=== PATIENT | female | born 1975 | race Caucasian/White ===

== ENCOUNTER 2024-03-18 07:32 | Outpatient (OUT) | payer OTHER, SELFPAY ==
--- NOTE | 2024-03-18 | XR_ITS ---
The [address] [address] Patient Name: ELEN LLANES MRN: [id number] date: 1975 Sex: F Assigned Patient Location: [facility] Current Patient Location: Accession/Order Number: [id number] Exam Date: 03/18/2024 07:51 Report Date: 03/19/2024 07:52 At the request of: DARRYL SIFUENTES Procedure: XR foot RT min 3V PROCEDURE: XR foot RT min 3V, XR ankle RT min 3V HISTORY: RIGHT FOOT PAIN ; right ankle pain; no known injury COMPARISON: None. FINDINGS: BONES:Cortical irregularity and small subchondral lucencies adjacent the superior medial articular surface of the talus. Degenerative enthesophytes at the medial tibiotalar ligament which appear to have nearly contacting surfaces. SOFT TISSUES:Soft tissue swelling surrounding the ankle. EFFUSION:None visible. OTHER: Negative. XR/XR foot RT min 3V IMPRESSION: 1. Suspect osteochondral defect involving the medial articular surface of the talar dome. MRI recommended for further evaluation. 2. Bone contact versus near bone contact between the tip of the medial malleolus and the medial margin of the talus. Electronically authenticated by: JOSE EDUARDO SHARMA Date: 03/19/2024 07:52
--- NOTE | 2024-03-18 | XR_ITS ---
The [address] [address] Patient Name: ELEN LLANES MRN: [id number] date: 1975 Sex: F Assigned Patient Location: [facility] Current Patient Location: Accession/Order Number: [id number] Exam Date: 03/18/2024 08:09 Report Date: 03/19/2024 07:52 At the request of: DARRYL SIFUENTES Procedure: XR ankle RT min 3V PROCEDURE: XR foot RT min 3V, XR ankle RT min 3V HISTORY: RIGHT FOOT PAIN ; right ankle pain; no known injury COMPARISON: None. FINDINGS: BONES:Cortical irregularity and small subchondral lucencies adjacent the superior medial articular surface of the talus. Degenerative enthesophytes at the medial tibiotalar ligament which appear to have nearly contacting surfaces. SOFT TISSUES:Soft tissue swelling surrounding the ankle. EFFUSION:None visible. OTHER: Negative. XR/XR ankle RT min 3V IMPRESSION: 1. Suspect osteochondral defect involving the medial articular surface of the talar dome. MRI recommended for further evaluation. 2. Bone contact versus near bone contact between the tip of the medial malleolus and the medial margin of the talus. Electronically authenticated by: JOSE EDUARDO SHARMA Date: 03/19/2024 07:52
== END 2024-03-18 07:33 | disposition home or self-care (01) ==
PROVIDERS: Family Provider Family Medicine; Visit Provider Podiatrist Foot & Ankle Surgery
DX: M25.571 Pain in right ankle and joints of right foot (principal); M79.671 Pain in right foot
CPT/HCPCS: 73610; 73630